=== PATIENT | male | born 1945 | race Caucasian/White ===

== ENCOUNTER 2016-04-09 01:34 | Emergency (ER) | payer OTHER ==
[2016-04-09 01:45] VITALS: BP 157/92; PULSE 89; TEMP 98.1; BMI 39.4
[2016-04-09] MEDS ORDERED: OXYCODONE/APAP 5/325MG COMBO TABLET PO ONE (02:46)
--- NOTE | 2016-04-09 02:49 | PDOC ---
History of Present Illness - General Chief Complaint: Pain, Acute Stated Complaint: RT KNEE PAIN Time Seen by Provider: 04/09/16 02:03 - History of Present Illness Initial Comments: 04/09/16 02:47 CHIEF COMPLAINT: Knee pain HISTORY OF PRESENT ILLNESS: 71-year-old male with history of insulin dependent diabetes and hypertension presents to ED with knee pain 3 days. Patient states the pain started on Friday and is in worsening and now that he can't cannot bear any weight on the right knee. Patient states he went to his doctor Dr. Fletcher this morning and was given a shot for pain medicine. Patient states the pain was relieved for about 2 hours but now it is super painful again. No chills , nausea, vomiting, diarrhea, loss of sensation, or numbness or tingling to his legs. No recent travel or sick contacts. PAST MEDICAL HISTORY: Denies past medical history FAMILY HISTORY: Denies SOCIAL HISTORY: Denies tobacco, alcohol, illicit drug use. SURGICAL HISTORY: knee replacement 2008 ALLERGIES: No known drug allergies REVIEW OF SYSTEMS General/Constitutional: Denies fever or chills. Denies weakness, weight change. HEENT: Denies change in vision. Denies ear pain or discharge. Denies sore throat. Cardiovascular: Denies chest pain or shortness of breath. Respiratory: Denies cough, wheezing, or hemoptysis. Gastrointestinal: Denies nausea, vomiting, diarrhea or constipation. Denies rectal bleeding. Genitourinary: Denies dysuria, frequency, or change in urination. Musculoskeletal: Pain to R knee. Denies joint or muscle swelling or pain. Denies neck or back pain. Skin and breasts: Denies rash or easy bruising. Neurologic: Denies headache, vertigo, loss of consciousness, or loss of sensation. PHYSICAL EXAM General Appearance: Well-appearing, appropriately dressed. No apparent distress , no intoxication. HEENT: EOMI, PERRLA, normal ENT inspection, normal voice, TMs normal, pharynx normal. No conjunctival pallor. No photophobia, scleral icterus. Neck: Supple. Trachea midline. No tenderness, rigidity, carotid bruit, stridor , lymphadenopathy, or thyromegaly. Respiratory/Chest: Lungs CTAB. No shortness of breath, chest tenderness, respiratory distress, accessory muscle use. No crackles, rales, rhonchi, stridor , wheezing, dullness Cardiovascular: RRR. S1, S2. No JVD, murmur, bradycardia, tachycardia. Vascular Pulses: Dorsalis-Pedis (R): 2+, Dorsalis-Pedis (L): 2+ Gastrointestinal/Abdominal: Normal bowel sounds. Abdomen soft, non-distended. No tenderness or rebound tenderness. No organomegaly, pulsatile mass, guarding , hernia, hepatomegaly, splenomegaly. Lymphatic: No adenopathy, tenderness. Musculoskeletal/Extremities: Normal inspection. FROM of all extremities, normal capillary refill. Pelvis Stable. No CVA tenderness. No tenderness to extremities, pedal edema, swelling, erythema or deformity. Integumentary: Appropriate color, dry, warm. No cyanosis, erythema, jaundice or rash Neurologic: telecommunications officer II-XII intact. Fully oriented, alert. Appropriate mood/affect. Motor strength 5/5. No appreciable EOM palsy, facial droop or sensory deficit. 04/10/16 04:10 Past History - Past Medical History Allergies/Adverse Reactions: Allergies Allergy/AdvReac Type Severity Reaction Status Date / Time No Known Allergies Allergy Verified 04/09/16 01:42 Home Medications: Ambulatory Orders Glyburide/Metformin HCl [Glyburide-Metformin 5-500 mg] 1 each PO BIDAC 07/24/13 Ibuprofen [Motrin -] 800 mg PO TID PRN 07/24/13 Insulin (Levemir) [Levemir Flexpen -] 10 units SQ BID 07/24/13 Olmesartan Med/Amlodipine/Hctz [Tribenzor 40-10-12.5 mg Tablet] 1 each PO DAILY 07/24/13 Rosuvastatin [Crestor -] 10 mg PO DAILY 07/24/13 Ibuprofen 800 mg PO TID #21 tablet 04/09/16 Diabetes: Yes HTN: Yes Hypercholesterolemia: Yes Suicide Attempt (Hx): No - Surgical History Cardiac Surgery: Yes (valve replacement) - Immunization History Immunization Up to Date: Yes - Psycho/Social/Smoking Cessation Hx Suicidal Ideation: No Smoking History: Never smoked Have you smoked in the past 12 months: No Number of Cigarettes Smoked Daily: 0 Information on smoking cessation initiated: No Hx Alcohol Use: No Drug/Substance Use Hx: No Substance Use Type: Alcohol *Physical Exam - Vital Signs Last Vital Signs Temp Pulse Resp BP Pulse Ox 98.1 F 89 14 157/92 97 04/09/16 01:43 04/09/16 01:43 04/09/16 01:43 04/09/16 01:43 04/09/16 01:43 ED Treatment Course - RADIOLOGY Radiology Studies Ordered: Category Date Time Status KNEE 3 POS-LEFT [RAD] Stat Radiology 04/09/16 02:28 Ordered Medical Decision Making - Medical Decision Making 04/10/16 04:10 71-year-old male with history of insulin dependent diabetes and hypertension presents to ED with knee pain 3 days. -Left knee x-ray -Perocet -Motrin 800 mg X-ray result suggestive of total knee replacement, no effusion or fracture seen. Patient reassessed, states his pain is better. Advised patient to follow up with ortho tomorrow and of signs and symptoms for return to ED; patient verbalized understanding and agrese to plan. Rx for 800 mg Motrin sent to pharm. *DC/Admit/Observation/Transfer Diagnosis at time of Disposition: Knee pain, right Qualifiers: Chronicity: chronic Qualified Code(s): M25.561 - Pain in right knee - Discharge Dispostion Disposition: HOME Condition at time of disposition: Stable Admit: No - Prescriptions Prescriptions: Ibuprofen 800 mg PO TID #21 tablet - Referrals Referrals: Rico Fletcher [Primary Care Provider] - Jesse Onofre MD [Staff Physician] - - Patient Instructions Printed Discharge Instructions: DI for Knee Pain, DI for Knee Replacement Additional Instructions: Please take medication as prescribed and follow up with Dr. Onofre tomorrow as discussed. If you experience any loss of sensation to your leg, loss of bowel or bladder function, fever, chills, nausea, vomiting, diarrhea or any new or worsening symptoms, please return to the ED.
[2016-04-09] MEDS ORDERED: OXYCODONE/APAP 5/325MG COMBO TABLET ONE (02:50)
[2016-04-09] MEDS ORDERED: IBUPROFEN 400 MG TABLET (FP) PO ONE ×2 (03:24→03:38)
== END 2016-04-09 03:58 | disposition home or self-care (01) ==
LOC: JER 01:34
DX: M25.562 Pain in left knee (principal); Z96.652 Presence of left artificial knee joint; E11.9 Type 2 diabetes mellitus without complications; Z79.4 Long term (current) use of insulin; I10 Essential (primary) hypertension; E78.00 Pure hypercholesterolemia, unspecified
CPT/HCPCS: 73562-TC-LT; 99281-25; 99282-25